=== PATIENT | female | born 1970 | race African-American/Black ===

== ENCOUNTER 2019-03-13 11:45 | Inpatient (IN) | payer MEDICARE, OTHER ==
[~2019-03-13] VITALS: Ht 157.5 cm; Wt 47.6 kg
--- NOTE | 2019-03-13 12:04 | NUR ---
BLANK, FROM SNF, FOR PSYCHEVAL, INCREASING HALLUCINATIONS AND DELUSIONAL -SI/HI. PT ACTING PARANOID, STATING "SOMEONE IS PUTTING SOMETHING" IN HER, AND THAT IT'S MAKING HER ACT WEIRD AND SLEEPY. PT REQUESTS TO HAVE IV FLUIDS BECAUSE SHE IS "DEHYDRATED". NO ACUTE DISTRESS NOTED. MADE COMFORTABLE AND READY FOR EVAL.
[2019-03-13 12:20] LABS: BASOPHILS % (AUTO) 0.9 % (0.0-2.0); HEMATOCRIT 37 % (33-45); HEMOGLOBIN 12.2 g/dL (11.5-14.8); LYMPHOCYTES # (AUTO) 1.4 /CMM (0.8-4.8); LYMPHOCYTES % (AUTO) 31.7 % (20.0-44.0); MEAN CORPUSCULAR HGB CONC 33 g/dl (31.0-36.0); MEAN CORPUSCULAR VOLUME 93 fL (82-100); MONOCYTES # (AUTO) 0.4 /CMM (0.1-1.30); MONOCYTES % (AUTO) 8.5 % (2.0-12.0); NEUTROPHILS # (AUTO) 2.6 /CMM (1.8-8.9); NEUTROPHILS % (AUTO) 57.9 % (43.0-81.0); PLATELET COUNT (AUTO) 336 /CMM (150-450); RED BLOOD CELL COUNT(AUTO) 4.01 MIL/uL (4.0-5.2); WHITE BLOOD COUNT (AUTO) 4.5 K/uL (4.3-11.0)
[2019-03-13 12:25] LABS: CALCIUM, SERUM 9.3 mg/dL (8.5-10.1); CARBON DIOXIDE 31 mmol/L (21-32); CHLORIDE 104 mmol/L (98-107); CREATININE 0.8 mg/dL (0.6-1.3); GLUCOSE 101 mg/dL (74-106); POTASSIUM 3.6 mmol/L (3.5-5.1); SODIUM SERUM 143 mmol/L (136-145); UREA NITROGEN, BLOOD 9 mg/dL (7-18)
[2019-03-13 12:37] LABS: APPEARANCE,URINE CLEAR (CLEAR); BILIRUBIN,URINE NEGATIVE (NEGATIVE); BLOOD, URINE NEGATIVE Ery/uL (NEGATIVE); COLOR,URINE YELLOW (YELLOW); KETONES,URINE NEGATIVE (NEGATIVE); LEUKOCYTE ESTERASE ,URINE NEGATIVE (NEGATIVE); NITRITE, URINE NEGATIVE (NEGATIVE); PH,URINE 6.5 (5.0-8.0); PROTEIN,URINE NEGATIVE (NEGATIVE); UGLUCOSE NEGATIVE (NEGATIVE); UROBILINOGEN,URINE 0.2 EU/dL (0.2)
[2019-03-13 12:39] LABS: ALANINE AMINOTRANSFERASE 37 U/L (12-78); ALBUMIN 3.7 g/dL (3.4-5.0); ALCOHOL, BLOOD < 3 mg/dL (0-0); ALKALINE PHOSPHATASE 81 U/L (46-116); ASPARTATE AMINOTRANSFERASE 23 U/L (15-37); BILIRUBIN,DIRECT 0.1 mg/dL (0.0-0.2); BILIRUBIN,TOTAL 0.3 mg/dL (0.2-1.0); TOTAL PROTEIN, SERUM 7.3 g/dL (6.4-8.2)
[2019-03-13 12:43] LABS: ACETAMINOPHEN < 10 ug/ml (10-30); SALICYLATE 2.3 mg/dL (2.8-20.0)
--- NOTE | 2019-03-13 13:30 | NUR ---
PT GIVEN FOOD TRAY
--- NOTE | 2019-03-13 14:16 | NUR ---
PT SITTING COMFORTABLY IN BED. TALKING TO HERSELF. NO COMPLAINTS AT THIS TIME. WILL CONT TO MONITOR.
[2019-03-13] MEDS ORDERED: HYDR453.3 TP (14:47)
[2019-03-13] MEDS ORDERED: TRIA80OI TP (14:47)
[2019-03-13] MEDS ORDERED: LACT10SO PO (14:47)
[2019-03-13] MEDS ORDERED: FAMO-131 PO (14:47)
[2019-03-13] MEDS ORDERED: ASPI-605 PO (14:47)
--- NOTE | 2019-03-13 15:13 | NUR ---
Patient eloped from facility. ER MD notified.
--- NOTE | 2019-03-13 16:00 | NUR ---
PT RETURNED TO ER. REFUSES TO GO TO ROOM DUE TO "NOT TRUSTING ANYONE HERE".
--- NOTE | 2019-03-13 16:37 | NUR ---
RECIEVED [facility] BED 215-2
--- NOTE | 2019-03-13 16:41 | NUR ---
CALLED INTAKE AND LEFT VOICEMAIL CONFIRMING DR WOODS ADMITTING PSYCHIATRIST
--- NOTE | 2019-03-13 16:42 | NUR ---
INTAKE CONFIRMED DR WOODS ADMITTING PSYCHIATRIST
--- NOTE | 2019-03-13 16:57 | NUR ---
CALL FROM MAMADOU MCKENNA AND ALVARADO PAYAN,CN AT [facility], THEY WANT PATIENT TO BE SEEN BY PSYCH CLINICIAN FOR EVAL
--- NOTE | 2019-03-13 16:59 | NUR ---
SAIL FINISHER HAND SHIVA ETA 1 HR
--- NOTE | 2019-03-13 18:56 | NUR ---
RECIEVED BED 218-2
--- NOTE | 2019-03-13 19:06 | NUR ---
PT AMBULATORY TO [facility]
--- NOTE | 2019-03-13 20:00 | NUR ---
ADMITTED THIS 48 YEARS OLD FEMALE, FROM ER PATIENT WAS PLACED ON HOLD DUE TO INCREASED AGITATIONS, PARANOID, DELUSIONAL. PATIENT IS ALERT, ORIENTED X 3 AMBULATORY TO THE BATHROOM, SKIN IS INTACT, UPON FACE TO FACE ASSESSMENT, PATIENT REFUSED, ANY SI/HI AT THIS TIME, EXPLAIN PATIENT ABOUT TREATMENT AND MEDICATION, HOSPITAL HAND BOOK AND POLICY HANDED TO THE PATIENT WITH CONSENT PAPER PATIENT REFUSED TO SIGN SOME CONSENT PAPER ADVISEMENT EXPLAIN AND GIVE TO THE PATIENT PSY DR. WOODS NOTIFY REGARDING PATIENT ADMISSION. PATIENT IS CALM AND COOPERATIVE AT THIS TIME, BUT TALKING TO HER SELF, STILL VERY PARANOID AND DELUSIONAL. WILL CONTINUES TO MONITOR THE PATIENT FOR SAFETY AND MAKE ROUND EVERY 15 MINS FOR PATIENT SAFETY. CALL LIGHT WITHIN EASY REACH
[2019-03-13] MEDS ORDERED: ACETAMINOPHEN 325 MG TABLET PO PRN (20:30)
[2019-03-13] MEDS ORDERED: MAG HYDROX/AL HYDROX/SIMETH 30 ML UDC PO PRN (20:30)
[2019-03-13] MEDS ORDERED: MAGNESIUM HYDROXIDE 30 ML UDC PO PRN (20:30)
[2019-03-13] MEDS ORDERED: TEMAZEPAM 7.5 MG CAPSULE PO PRN (20:30)
[2019-03-13] MEDS ORDERED: BLOOD SUGAR DIAGNOSTIC 1 EACH STRIP IN ONE (20:30)
[2019-03-14 09:11] VITALS: BP 132/98
[2019-03-14] MEDS: FAMOTIDINE (20 MG) 20 MG TABLET PO SCH (10:20)
[2019-03-14] MEDS: LACTULOSE 10 G/15 ML UDC (PYXIS) PO SCH (10:21)
[2019-03-14] MEDS: ASPIRIN EC 81 MG TABLET.DR PO SCH (10:21)
--- NOTE | 2019-03-14 10:30 | NUR ---
UA SENT FOR TEST.
--- NOTE | 2019-03-14 14:09 | NUR ---
GROUP NOTE Goal: Patient will attend group being held today from 11AM-11:45AM in the activities room and participate and/or actively listen to peers and be respectful. Intervention: SW invited patient to attend group session with peers regarding their support system. SW respected patient�s self-determination and will continue to invite patient to group. Response: Patient declined to participate in today�s group community mental health social worker session. The patient presents paranoid. Plan: Patient will be invited to attend next community mental health social worker group session held.
[2019-03-14] MEDS ORDERED: TRIAMCINOLONE ACETONIDE 0.025% 15 GM TUBE TP PRN (14:30)
[2019-03-14] MEDS ORDERED: ASPIRIN/ACETAMINOPHEN/CAFFEINE 1 EACH TABLET PO PRN (14:30)
[2019-03-14] MEDS ORDERED: TRIAMCINOLONE ACETONIDE 0.1% CR 15 GM TUBE TP PRN (15:30)
[2019-03-14 16:00] VITALS: BP 130/78
--- NOTE | 2019-03-14 18:00 | NUR ---
NO CHANGE IN STATUS.
--- NOTE | 2019-03-14 19:00 | NUR ---
JUST NOTED LAB CANCELLED HGB A1-C TEST AND CREAT,WITH GFR NURSE NOT MADE AWARE.
[2019-03-14 20:17] VITALS: BP 129/84
[2019-03-14] MEDS: QUETIAPINE FUMARATE 100 MG TABLET PO SCH (21:20)
[2019-03-14] MEDS ORDERED: OLANZAPINE 2.5 MG TABLET PO SCH (22:00)
[2019-03-15 08:00] VITALS: BP 114/84
[2019-03-15] MEDS: QUETIAPINE FUMARATE 100 MG TABLET PO SCH ×2 (09:01→21:11)
[2019-03-15] MEDS: ASPIRIN EC 81 MG TABLET.DR PO SCH (09:01)
[2019-03-15] MEDS: FAMOTIDINE (20 MG) 20 MG TABLET PO SCH (09:01)
[2019-03-15] MEDS: LACTULOSE 10 G/15 ML UDC (PYXIS) PO SCH (09:01)
--- NOTE | 2019-03-15 09:20 | NUR ---
DR. WOODS GAVE AN ORDER TO D/C HOLD AND D/C TO [facility], TO CONTINUE SAME MEDS INCLUDING PRN AND TO FOLLOW UP WITH PSYCH AND MEDICAL DOCTORS.
--- NOTE | 2019-03-15 10:28 | NUR ---
SW contacted [facility] Address: [address] [place] [address] and spoke with Maribeth, community health coordinator who stated pt is able to return once stable for discharge.
[2019-03-15] MEDS: FLUTICASONE PROPIONATE 16 GM BOTTLE NS PRN (12:37)
--- NOTE | 2019-03-15 15:06 | NUR ---
INITIAL DISCHARGE PLAN: Patient wishes to be discharged back to [facility] Address: [address], [place] [address] . DAQUAN spoke with Maribeth accounting coordinator who stated pt is able to return once she is stable for discharge. DAQUAN will help form a safe and proper discharge in collaboration with .
--- NOTE | 2019-03-15 15:38 | NUR ---
[facility]/RN-NOTES PATIENT C/O BOTH EYES DRYNESS AND REQUESTING ARTIFICIAL TEARS. OMID HOOD MADE AWARE WITH T.O ORDER OF ARTIFICIAL TEARS BID TO BOTH EYES . NOTED AND CARRIED OUT.
[2019-03-15 16:00] VITALS: BP 124/77
[2019-03-15] MEDS: POLYVINYL ALCOHOL/POVIDONE 0.4 ML DROPERETTE EACHEYE PRN (16:21)
--- NOTE | 2019-03-15 22:39 | NUR ---
PATIENT IS FOR TRANSFER TO [facility].
--- NOTE | 2019-03-15 22:57 | NUR ---
Transferred to room 323-1 via wheelchair @ [phone], report given to merly alvarez. Patient stable condition.
--- NOTE | 2019-03-16 01:22 | NUR ---
TRANFERR Addendum: 03/16/19 at 0123 by BARRON ALVAREZ RN ERROR
--- NOTE | 2019-03-16 01:23 | NUR ---
TRANSFER RECEIVED FROM GP. PT I BED, AWAKE ALERT ORIENTEDX3, STABLE AND CALM, SITTER AT BEDSIDE WILL CONTINUE TO MONITOR
--- NOTE | 2019-03-16 07:55 | NUR ---
MS RN NOTES RECEIVED PATIENT IN BED ALERT AND AWAKE ORIENTEDX3. AMBULATORY WITH STEADY GAIT TO [facility]. PATIENT BRUSHED HER TEETH AND WASHED HER FACE. DENIES ANY C/O PAIN NOR DISCOMFORT AT THIS TIME. NO SOB OBSERVED. DENIES ANY VERBALIZATION OF HALLUCINATIONS AND DELUSION WHEN INTERVIEWED AND DURING ASSESSMENT. COMPLIANT WITH CARE. 1:1 SITTER AT BEDSIDE. CALL LIGHT WITHIN REACH.
[2019-03-16 08:00] VITALS: BP 127/81
--- NOTE | 2019-03-16 09:30 | NUR ---
MS RN NOTES CALLED [facility] AND SPOKE TO MICHEL REGARDING 5150 EXPIRING @ 6948 03/16/19, PER MICHEL SHE WILL GET PAPER WORK READY AND ONCE COMPLETED SHE WILL NOTIFY UNIT.
[2019-03-16] MEDS: LACTULOSE 10 G/15 ML UDC (PYXIS) PO SCH (09:46)
[2019-03-16] MEDS: FAMOTIDINE (20 MG) 20 MG TABLET PO SCH (09:47)
[2019-03-16] MEDS: QUETIAPINE FUMARATE 100 MG TABLET PO SCH ×2 (09:47→21:13)
[2019-03-16] MEDS: ASPIRIN EC 81 MG TABLET.DR PO SCH (09:47)
--- NOTE | 2019-03-16 10:58 | NUR ---
MS RN NOTES PATIENT OBSERVED TALKING TO SELF THEN PACES BACK AND FORTH FROM BED TO SINK WASHING HER HANDS. PATIENT STATED TO 1:1 SITTER. " I THINK THE JAZ IS NOT WITH YOU TODAY, THERE'S SOMETHING ELSE." WHEN INTERVIEWED PATIENT, PATIENT SAT BACK IN BED AND STARTED READING THE BIBLE.
--- NOTE | 2019-03-16 13:27 | NUR ---
MS RN NOTES PATIENT ASLEEP IN BED, SNORING, RESTING COMFORTABLY.
--- NOTE | 2019-03-16 13:48 | NUR ---
MS GINGER NOTES PATIENT WOKE UP AND USED THE BATHROOM. OBSERVED PATIENT TALKING TO SELF WHILE INSIDE THE BATHROOM.
[2019-03-16 16:00] VITALS: BP 131/68
--- NOTE | 2019-03-16 16:15 | NUR ---
MS RN CLOSING NOTES TRANSFERRED PATIENT TO [facility] UNIT, ALL BELONGING ACCOUNTED FOR, TRANSFERRED TO [facility] UNIT VIA WHEELCHAIR. REPORT GIVEN
--- NOTE | 2019-03-16 16:58 | NUR ---
MS RN NOTES PATIENT SHOWERED, ACCOMPANIED BY PRIMARY NURSE.
[2019-03-16] MEDS: POLYVINYL ALCOHOL/POVIDONE 0.4 ML DROPERETTE EACHEYE PRN ×2 (17:12→22:19)
--- NOTE | 2019-03-16 18:15 | NUR ---
[facility]PS MANAGER STRATEGY: NOTES PT WAS BROUGHT FROM [facility] OV AND BACK TO [facility] UNIT WITH ALL VALUABLES. PT AWAKE, A/OX4. ORIENTED TO ROOM AND SURROUNDINGS. VALUABLES LOCKED UP IN 211-2 LOCKER.
[2019-03-16 20:00] VITALS: BP 109/72
[2019-03-16] MEDS: FLUTICASONE PROPIONATE 16 GM BOTTLE NS PRN (22:19)
--- NOTE | 2019-03-17 04:30 | NUR ---
RN NOTES PATIENT REQUEST TO BE PUT IN HER OWN ROOM. ADVISED THAT WE DO NOT HAVE ANY SINGLE BED ROOMS AVAILABLE AT THIS TIME. STERILE TECH TURNED AC OFF IN PATIENTS ROOM DUE TO PATIENTS ROOMMATE COMPLAINING OF ROOM BEING TOO COLD. PATIENT BECAME UPSET WHEN INFORMED THAT WE CANNOT ADJUST ROOM TEMP AT THIS TIME BECAUSE IT HAS TO BE DONE BY ENGINEERING SINCE WE DO NOT HAVE THE STRONG TO THE BOX. INFORMED PATIENT WE CAN ONLY TURN AC ON AND OFF BY USING A PAPERCLIP. PATIENT STATES SHE IS GOING THROUGH [facility] AND NEEDS THE AC TO REMAIN ON. OFFERED TO ACCOMMODATE HER BY SWITCHING ROOMMATES TO BE IN ROOM WITH SOMEONE WHO LIKES IT COLD IN THE ROOM. PATIENT DECLINED OFFER. STATES SHE WANTS TO FILE A GRIEVANCE. CHARGE NURSE AWARE. WILL CONTINUE TO MONITOR.
--- NOTE | 2019-03-17 07:40 | NUR ---
OUT AT DESK,RAISING VOICE,REQUESTING NEW BREAKFAST TRAY,UPSET WITH FOOD SERVED,STATES NOT HAPPY.
[2019-03-17 08:00] VITALS: BP 109/76
--- NOTE | 2019-03-17 08:00 | NUR ---
VS STABLE,QUIET AT THIS TIME.
[2019-03-17] MEDS: QUETIAPINE FUMARATE 100 MG TABLET PO SCH ×2 (08:55→21:18)
[2019-03-17] MEDS: LACTULOSE 10 G/15 ML UDC (PYXIS) PO SCH (08:56)
[2019-03-17] MEDS: ASPIRIN EC 81 MG TABLET.DR PO SCH (08:56)
[2019-03-17] MEDS: FAMOTIDINE (20 MG) 20 MG TABLET PO SCH (08:56)
--- NOTE | 2019-03-17 11:17 | NUR ---
STILL A LITTLE AGITATED,AWAITING RM. CHANGE.
--- NOTE | 2019-03-17 14:50 | NUR ---
RELOCATED TO RM.212-2.
[2019-03-17 16:00] VITALS: BP 128/83
[2019-03-17] MEDS: ENSURE ENLIVE 237 ML LIQUID (VANILLA) PO SCH (17:35)
--- NOTE | 2019-03-17 19:20 | NUR ---
RN INITIAL NOTES: RECEIVED REPORT FROM ORA Ovalles. PT IN BED, AWAKE, A/O X4, ON RA RESPIRATIONS EVEN AND UNLABORED, DENIES ANY PAIN OR DISCOMFORT AT THIS TIME. PT IS AMBULATORY,STEADY GAIT. SELF CARE, CONTINENT. PER REPORT PT BEEN DEMANDING, NEEDY, DELUSIONAL, IMPULSIVE, PARANOID. PT EXPRESSED DISAPPOINTMENT AND STATED SHE FEELS UPSET, BECAUSE HER SEROQUEL WAS INCREASED TO 250MG. SHE STATED SHE'S TAKING 200MG ONLY. UKE DRIVER MADE AWARE OF PT'S COMPLAINT. SAFETY PRECAUTIONS FOR FALL INITIATED, SIDE RAILS UP X2 FOR SAFETY, WILL CONTINUE MONITORING [id number] FOR SAFETY AND ANY CHANGES IN BEHAVIOR.
[2019-03-17 20:00] VITALS: BP 133/79
[2019-03-17] MEDS: POLYVINYL ALCOHOL/POVIDONE 0.4 ML DROPERETTE EACHEYE PRN (20:40)
--- NOTE | 2019-03-17 20:42 | NUR ---
prn eye drops: pt requested for eye drops/refresh eye drops for dryness of the eye
[2019-03-17] MEDS: FLUTICASONE PROPIONATE 16 GM BOTTLE NS PRN (22:30)
[2019-03-18 08:00] VITALS: BP 115/78
[2019-03-18] MEDS: QUETIAPINE FUMARATE 100 MG TABLET PO SCH ×2 (09:00→22:08)
[2019-03-18] MEDS: ENSURE ENLIVE 237 ML LIQUID (VANILLA) PO SCH ×3 (09:06→17:23)
[2019-03-18] MEDS: FAMOTIDINE (20 MG) 20 MG TABLET PO SCH (09:07)
[2019-03-18] MEDS: ASPIRIN EC 81 MG TABLET.DR PO SCH (09:07)
[2019-03-18] MEDS: LACTULOSE 10 G/15 ML UDC (PYXIS) PO SCH (09:08)
[2019-03-18] MEDS: POLYVINYL ALCOHOL/POVIDONE 0.4 ML DROPERETTE EACHEYE PRN (09:12)
--- NOTE | 2019-03-18 09:13 | NUR ---
GPS/RN-NOTES PATIENT REFUSED SEROQUEL 50 MG P.O DESPITE EXPLANATIONS RISK AND BENEFITS. PATIENT GETS ANGRY AND ARGUMENTATIVE. STATED" YOU ARE JUST PUSHING MEDICATIONS,I NEED TO TALK TO THE DOCTOR PRESCRIBING THIS BECAUSE IT'S NOT HELPING ME". OFFERED X3 ,CHARGE NURSE AWARE.
[2019-03-18] MEDS ORDERED: TEMAZEPAM 7.5 MG CAPSULE PO PRN (11:00)
[2019-03-18 16:00] VITALS: BP 136/75
[2019-03-18] MEDS: TRIAMCINOLONE ACETONIDE 0.1% CR 15 GM TUBE TP SCH (18:09)
[2019-03-18 20:00] VITALS: BP 133/77
[2019-03-19] MEDS: FLUTICASONE PROPIONATE 16 GM BOTTLE NS PRN (01:57)
[2019-03-19 08:00] VITALS: BP 105/70
[2019-03-19] MEDS: LACTULOSE 10 G/15 ML UDC (PYXIS) PO SCH (08:27)
[2019-03-19] MEDS: FAMOTIDINE (20 MG) 20 MG TABLET PO SCH (08:28)
[2019-03-19] MEDS: ASPIRIN EC 81 MG TABLET.DR PO SCH (08:28)
[2019-03-19] MEDS: ENSURE ENLIVE 237 ML LIQUID (VANILLA) PO SCH ×3 (08:28→16:36)
[2019-03-19] MEDS: QUETIAPINE FUMARATE 100 MG TABLET PO SCH (08:30)
[2019-03-19] MEDS: TRIAMCINOLONE ACETONIDE 0.1% CR 15 GM TUBE TP SCH ×2 (08:33→17:22)
--- NOTE | 2019-03-19 08:50 | NUR ---
[facility] RN NOTES PATIENT REFUSED TO TAKE SEROQUEL 50MG PO. RISKS AND BENEFITS EXPLAINED BUT TO NO AVAIL. PATIENT STRONGLY REFUSED. WILL CONTINUE TO MONITOR
[2019-03-19] MEDS ORDERED: LIDOCAINE 2% 20 ML MDV ONE (14:48)
[2019-03-19] MEDS ORDERED: IBUPROFEN SUSP 100 MG/5 ML UDC ONE (14:48)
[2019-03-19] MEDS ORDERED: ACETAMINOPHEN 650 MG/20.3 ML UDC ONE (14:48)
--- NOTE | 2019-03-19 15:00 | NUR ---
GROUP NOTE: SW prompted pt to participate in group session on this present day discussing "current issues you are having while being on a hold." Pt began stating that she needed to leave immediately as she did not feel safe in this unit. Pt stated that everyone was after her and retaliating against her and that is why the charge nurse but a "terrible patient" in her room, to make her life miserable. Pt appeared manic with hyperverbal speech and paranoid ideation. Pt also stated that she needed her food to be sent up separately due to the fact that she almost yesterday due to her having an allergic reaction. Pt demanded SW contact psychiatrist to get her released as her life was in danger. Pt has poor insight and denies having a mental illness and not knowing why she is on a hold stating that the only reason she came to the hospital was to work with her psychiatric team to get her thoughts organized. Pt will continue milieu treatment and medication stabilization.
[2019-03-19 16:00] VITALS: BP 120/78
--- NOTE | 2019-03-19 16:25 | NUR ---
[facility]PS RN NOTES SPOKE WITH DR MUIR OVER THE PHONE. AWARE OF PATIENT REFUSING SEROQUEL 50MG PO IN AM. WITH NEW ORDERS TO DC SEROQUEL 50 QAM, TO INCREASE SEROQUEL TO 400mg PO QHS. ORDERS READ BACK TO DR MUIR. ORDER NOTED AND CARRIED OUT. WILL CONTINUE TO MONITOR
[2019-03-19] MEDS ORDERED: QUETIAPINE FUMARATE 100 MG TABLET PO SCH ×2 (22:00)
[2019-03-19] MEDS: LORAZEPAM 0.5 MG TABLET PO PRN (23:25)
[2019-03-20] MEDS ORDERED: QUETIAPINE FUMARATE 100 MG TABLET PO ONE (07:00)
[2019-03-20] MEDS ORDERED: QUETIAPINE FUMARATE 100 MG TABLET PO SCH ×2 (07:30→22:00)
[2019-03-20] MEDS: ENSURE ENLIVE 237 ML LIQUID (VANILLA) PO SCH ×3 (09:00→17:00)
[2019-03-20 09:30] VITALS: BP 98/54
--- NOTE | 2019-03-20 09:44 | NUR ---
SW contacted [facility] Address: [address] [place] [address] and spoke with Linda, custom studio coordinator who stated pt is able to return this week with psych clearance. Linda, requested that clinical information be faxed before pts discharge. .
[2019-03-20] MEDS: FLUTICASONE PROPIONATE 16 GM BOTTLE NS PRN (09:50)
[2019-03-20] MEDS: FAMOTIDINE (20 MG) 20 MG TABLET PO SCH (09:51)
[2019-03-20] MEDS: TRIAMCINOLONE ACETONIDE 0.1% CR 15 GM TUBE TP SCH ×2 (09:51→17:37)
[2019-03-20] MEDS: ASPIRIN EC 81 MG TABLET.DR PO SCH (09:52)
[2019-03-20] MEDS: LACTULOSE 10 G/15 ML UDC (PYXIS) PO SCH (09:52)
--- NOTE | 2019-03-20 12:44 | NUR ---
DAQUAN faxed clinical information to Linda, procurement coordinator [facility] Address: [address] [place] [address] and informed her pt is discharging on this present day.
[2019-03-20] MEDS: LORAZEPAM 0.5 MG TABLET PO PRN (13:12)
--- NOTE | 2019-03-20 13:30 | NUR ---
SW contacted [facility] Address: [address] [place] [address] and spoke with Linda corporate wellness coordinator to inform her pts [phone] hold was not upheld and informed her [place] [address] [place] did not find probable cause to continue pt on a hold therefore pt was released on this present day. Linda, agreed and stated pt is able to return on this present day.
--- NOTE | 2019-03-20 13:42 | NUR ---
DISCHARGE NOTE: Pt will be discharged at 3:00pm via [facility] to [facility] Address: [address] [place] [address] . Pt has not family to notify. Pts mood is paranoid and irritable with congruent affect. Pt denied visual/auditory hallucinations and denied suicidal/homicidal ideation. Pt had a Probable Cause hearing on this present day and no probable cause was found to continue pts [phone] hold, therefore, hold was not upheld. Pt will continue psychiatric treatment and address her substance abuse with Psychiatrist: Dr. Richard Address: [address] [place] [address] . Pt will also be under the care of [employer] Association Counselor: Dr Benavidez Address: [address] [place] [address] . For smoking cessation, patient was referred to the [employer] and [employer] [id number]. Pt will also participate in a telephone meeting with [employer] [phone] on Thursday March 21, 2019 at 8:00am. The multidisciplinary exitcare form was done, printed, signed, and given to the patient.
[2019-03-20 16:00] VITALS: BP 119/69
[2019-03-20] MEDS: POLYVINYL ALCOHOL/POVIDONE 0.4 ML DROPERETTE EACHEYE PRN (17:39)
== END 2019-03-20 19:05 | DRG 885 ==
LOC: ER 11:47 → UNDOADMIN 16:47 → GPS 16:47 → GPSOV 19:11 → GPS 19:44 → GPSOV 03-15 22:39 → GPS 03-16 17:44
PROVIDERS: ADMIT Psychiatry & Neurology Psychiatry; ATTEND Nurse Practitioner Acute Care
DX: F20.0 Paranoid schizophrenia (principal); F29 Unspecified psychosis not due to a substance or known physiological condition; L40.9 Psoriasis, unspecified; K21.9 Gastro-esophageal reflux disease without esophagitis; F12.90 Cannabis use, unspecified, uncomplicated; F17.210 Nicotine dependence, cigarettes, uncomplicated; J30.9 Allergic rhinitis, unspecified; F32.9 Major depressive disorder, single episode, unspecified; Z91.14 Patient's other noncompliance with medication regimen
CPT/HCPCS: 36415; 80048-TC; 80076-TC; 80305; 81000-TC; 84703-TC; 85025-TC; 87081-TC; G0480; J3490